=== PATIENT | female | born 1980 | race Caucasian/White ===

== ENCOUNTER 2022-04-27 21:21 | Emergency (ER) | payer OTHER ==
[~2022-04-27] VITALS: Ht 162.6 cm; Wt 73.9 kg
[2022-04-27 21:48] VITALS: BP 122/88
[2022-04-27] MEDS ORDERED: HYDROcodone/APAP 5/325 MG 1 TAB TAB PO ONE (23:40)
--- NOTE | 2022-04-28 00:07 | NUR ---
PATIENT MEDICATED PER ORDERS AND PLACED BACK IN LOBBY
--- NOTE | 2022-04-28 00:12 | NUR ---
PT TAKEN TO BED 4
[2022-04-28 01:40] VITALS: BP 125/79
--- NOTE | 2022-04-28 01:55 | NUR ---
Patient discharged with v/s stable. Written and verbal after care instructions given and explained. Patient verbalized understanding. Ambulatory with steady gait. All questions addressed prior to discharge. Advised to follow up with PMD.
== END 2022-04-28 01:55 | disposition home or self-care (01) ==
LOC: MED 21:21
DX: S09.90XA Unspecified injury of head, initial encounter (principal); W22.8XXA Striking against or struck by other objects, initial encounter; Y93.89 Activity, other specified; Y92.89 Other specified places as the place of occurrence of the external cause; Y99.8 Other external cause status
CPT/HCPCS: 70450; 90471; 90715; 99284